=== PATIENT | male | born 1940 | race Caucasian/White ===

== ENCOUNTER 2024-11-18 06:22 | Day surgery (SDC) | payer OTHER, BC ==
[2024-11-14 16:53] VITALS: BMI 26.6
[2024-11-18] MEDS ORDERED: DEXAMETHASONE SOD PHOSPHATE 4 MG/1 ML VIAL ONE (07:17)
[2024-11-18] MEDS ORDERED: ONDANSETRON 4 MG/2 ML VIAL ONE (07:17)
[2024-11-18] MEDS ORDERED: PROPOFOL 80 ML ONE (07:17)
[2024-11-18] MEDS ORDERED: SUCCINYLCHOLINE CHLORIDE 200 MG/10 ML SYRINGE ONE (07:17)
[2024-11-18] MEDS ORDERED: LIDOCAINE HCL/PF 2% SDV 5ML VIAL ONE (07:17)
[2024-11-18] MEDS ORDERED: ERYTHROMYCIN 0.5% OPHTHALMIC OINTMENT 3.5 GM TUBE ONE (07:23)
[2024-11-18] MEDS ORDERED: BUPIVACAINE HCL/PF 0.5% (5MG/ML) 10 ML VIAL ONE (07:23)
[2024-11-18] MEDS ORDERED: POVIDONE-IODINE 5% OPHTHALMIC PREP 30 ML SOLUTION ONE (07:23)
[2024-11-18] MEDS ORDERED: LIDOCAINE 1%/EPI 1:100000 (20 ML MULTI DOSE VIAL) ONE (07:23)
[2024-11-18] MEDS ORDERED: TETRACAINE 0.5% OPHTH SOLN 2 ML BOTTLE ONE (07:23)
[2024-11-18] MEDS ORDERED: THROMBIN (BOVINE) 5,000 UNIT VIAL TP ONE (07:24)
[2024-11-18] MEDS ORDERED: FAMOTIDINE 20 MG/50 ML IVPB 20 MG/50 ML MG IVPB ONE (07:34)
[2024-11-18] MEDS ORDERED: ACETAMINOPHEN INJECTION 100 ML ONE (07:34)
[2024-11-18] MEDS ORDERED: DEXMEDETOMIDINE HCL 200 MCG/2 ML IVPB ONE (07:34)
[2024-11-18] MEDS ORDERED: ROCURONIUM BROMIDE 50 MG/5 ML SYRINGE ONE (07:48)
[2024-11-18] MEDS ORDERED: ONDANSETRON 4 MG/2 ML VIAL IVPUSH PRN (11:52)
[2024-11-18] MEDS ORDERED: LACTATED RINGERS SOLUTION 1,000 ML IV SCH (12:00)
[2024-11-18 12:11] VITALS: RESP 16
[2024-11-18 12:36] VITALS: PULSE 78; TEMP 97.9
[2024-11-18 13:38] VITALS: BP 115/71
== END 2024-11-18 13:54 | disposition home or self-care (01) ==
LOC: FASU 06:22
PROVIDERS: ATTEND Ophthalmology
PROC: 08SQXZZ Reposition Right Lower Eyelid, External Approach (ICD-10-PCS; principal; 2024-11-18 08:19)
DX: C44.1122 Basal cell carcinoma of skin of right lower eyelid, including canthus (principal)
CPT/HCPCS: 88304-TC; 94760